=== PATIENT | male | born 1955 | race Caucasian/White ===

== ENCOUNTER 2018-09-12 15:37 | Emergency (ER) | payer MEDICAID ==
[2018-09-12 16:04] VITALS: BP 131/79
[2018-09-12] MEDS ORDERED: Sodium Chloride 0.9% 10 ML Syringe FLUSH PRN (16:11)
[2018-09-12] MEDS ORDERED: Sodium Chloride 0.9% 1,000 ML IV ONE (16:12)
[2018-09-12] MEDS ORDERED: Morphine 4 MG/ML Syringe IVPUSH ONE ×2 (16:12→16:45)
[2018-09-12] MEDS ORDERED: Ondansetron 4 MG/2 ML SDV IVPUSH ONE (16:12)
[2018-09-12] MEDS ORDERED: Ketorolac 15 MG/ML SDV IVPUSH ONE (16:45)
[2018-09-12 16:54] LABS: CHLORIDE,CL 101 mmol/L (98-107); SODIUM,NA 138 mmol/L (136-145)
[2018-09-12 16:55] LABS: ANION GAP 17.9 mmol/L (10-20)
[2018-09-12] MEDS ORDERED: Iopamidol 612 MG/ML 100 ML Bottle IVPUSH ONE (17:38)
--- NOTE | 2018-09-12 18:34 | CT ---
[id number] CT/CT Abdomen Pelvis W IV EXAM: CT Abdomen Pelvis W IV CLINICAL DATA: ABDOMINAL PAIN. COMPARISON STUDY: None. FINDINGS: Mild amount subsegmental atelectasis in both lower lobes. Geographic area of contrast enhancement in the subcapsular region of the superior right hepatic lobe (series 2 image 14). Punctate calcification in the inferior hepatic lobe, nonspecific in etiology. Liver is otherwise unremarkable. Cholelithiasis. No evidence of acute cholecystitis. Subcentimeter hypodensity in the spleen, nonspecific. Pancreas, adrenal glands, and kidneys are unremarkable. Colonic diverticulosis. Negative for acute diverticulitis. Appendix is normal. No small bowel obstruction or inflammation. Small sliding-type hiatus hernia. No lymphadenopathy in the abdomen or pelvis. Stent in the right external iliac vein. Aorta atherosclerosis without aneurysm. Bilateral L5 pars interarticularis defects resulting in anterolisthesis of approximately 10 mm. Advanced L5-S1 degenerative disc disease. Moderate changes of spondylosis elsewhere in lumbar spine. 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 IMPRESSION: No acute findings in the abdomen or pelvis. Nonspecific area of geographic contrast enhancement in the subcapsular region of the right hepatic lobe. Consider follow-up liver protocol CT examination to better evaluate this finding. Jesse Damon MD 09/12/18 1400 Thank you for allowing us to participate in the care of your patient.
[2018-09-12] MEDS ORDERED: Take Home: Acetaminophen/HYDROcodone 325-10 MG, 5 Tab Pack PO ONE (18:44)
[2018-09-12] MEDS ORDERED: Take Home: metroNIDAZOLE 500 MG Tab, 4 Tab Pack PO ONE (18:44)
[2018-09-12] MEDS ORDERED: Take Home: Ciprofloxacin 500 MG Tab, 2 Tab Pack PO ONE (18:44)
--- NOTE | 2018-09-12 21:23 | EDM.PDOC ---
ED HPI GENERAL MEDICAL PROBLEM - General Chief Complaint: Flank Pain Stated Complaint: PAIN LEFT SIDE Time Seen by Provider: 09/12/18 15:45 Source of Information: Reports: Patient History Limitations: Reports: No Limitations - History of Present Illness INITIAL COMMENTS - FREE TEXT/NARRATIVE: Pt. presents to ER with complaints of R sided abdominal pain. States that the discomfort started abruptly this afternoon. States that it is sharp in nature and feels as though it radiates into his groin. Denies any fever or chills. No nausea, vomiting, or diarrhea. No chest pain or shortness of breath. Pt. states that he has had kidney stones in the past. Pt. is on Xaralto but has not been in the medication for 2 days. He is anticoagulated due to PE. States that he has been attempting to coordinate with the pharmacy and clinic to get this filled. He states that the discomfort does not radiate into his chest. No shortness of breath. No hemoptysis. Onset: Today Onset Date: 09/12/18 Location: Reports: Abdomen Quality: Reports: Sharp, Stabbing Severity: Severe Left Flank Pain Score (Numeric/FACES): 5 - Related Data Allergies Allergy/AdvReac Type Severity Reaction Status Date / Time No Known Allergies Allergy Verified 09/12/18 16:06 Home Meds: Home Meds Rivaroxaban [Xarelto] 20 mg PO DAILY 09/12/18 [History] atorvaSTATin [Lipitor] 20 mg PO BEDTIME 09/12/18 [History] Past Medical History Cardiovascular History: Reports: High Cholesterol Respiratory History: Reports: PE Social & Family History - Tobacco Use Smoking Status *Q: Current Every Day Smoker Years of Tobacco use: 40 Packs/Tins Daily: 0.5 ED ROS GENERAL - Review of Systems Review Of Systems: See Below Constitutional: Reports: No Symptoms HEENT: Reports: No Symptoms Respiratory: Reports: No Symptoms Cardiovascular: Reports: No Symptoms Endocrine: Reports: No Symptoms GI/Abdominal: Reports: Abdominal Pain. Denies: Constipation, Diarrhea, Hematochezia, Melena : Reports: No Symptoms Musculoskeletal: Reports: No Symptoms Skin: Reports: No Symptoms Neurological: Reports: No Symptoms Psychiatric: Reports: No Symptoms Hematologic/Lymphatic: Reports: No Symptoms Immunologic: Reports: No Symptoms ED EXAM, GENERAL - Physical Exam Exam: See Below Exam Limited By: No Limitations General Appearance: Alert, WD/WN, No Apparent Distress Head: Atraumatic, Normocephalic Neck: Normal Inspection, Supple, Non-Tender, Full Range of Motion Respiratory/Chest: No Respiratory Distress, Lungs Clear, Normal Breath Sounds, No Accessory Muscle Use, Chest Non-Tender Cardiovascular: Normal Peripheral Pulses, Regular Rate, Rhythm, No Edema, No Gallop, No JVD, No Murmur, No Rub GI/Abdominal: Normal Bowel Sounds, Soft, No Organomegaly, No Distention, No Mass , Tender (Male) Exam: Deferred Rectal (Males) Exam: Deferred Back Exam: Normal Inspection, Full Range of Motion, NT Extremities: Normal Inspection, Normal Range of Motion, Non-Tender, Normal Capillary Refill, No Pedal Edema Neurological: Alert, Oriented, CN II-XII Intact, Normal Cognition, Normal Gait, Normal Reflexes, No Motor/Sensory Deficits Psychiatric: Normal Affect, Normal Mood Skin Exam: Warm, Dry, Intact, Normal Color, No Rash Course - Vital Signs Last Recorded V/S: Last Vital Signs Temp 37.3 C 09/12/18 15:45 Pulse 65 09/12/18 15:45 Resp 18 09/12/18 15:45 BP 131/79 09/12/18 15:45 Pulse Ox 97 09/12/18 15:45 - Orders/Labs/Meds Orders: Active Orders 24 hr Category Date Time Status Peripheral IV Insertion Adult [OM.PC] Routine Oth 09/12/18 16:11 Ordered Labs: Laboratory Tests 09/12/18 09/12/18 09/12/18 Range/Units 16:28 16:29 16:29 WBC 14.2 H (4.0-10.0) x10^3/uL RBC 5.00 (4.5-6.0) x10^6/uL Hgb 15.6 (14.0-18.0) g/dL Hct 44.7 (40.0-52.0) % MCV 89.4 (78.0-93.0) fL MCH 31.2 (26.0-32.0) pg MCHC 34.9 (32.0-36.0) g/dL RDW Coeff of [place] 14.0 (10.0-15.0) % Plt Count 142 (130-400) x10^3/uL Neut % (Auto) 84.7 H (50.0-80.0) % Lymph % (Auto) 10.3 L (25.0-50.0) % [place] % (Auto) 4.7 (2.0-11.0) % Eos % (Auto) 0.2 (0.0-4.0) % Baso % (Auto) 0.1 L (0.2-1.2) % PT 11.0 (9.6-11.4) SEC INR 1.1 L (2.0-3.5) Sodium (136-145) mmol/L Potassium (3.5-5.1) mmol/L Chloride (98-107) mmol/L Carbon Dioxide (21-32) mmol/L Anion Gap (10-20) mmol/L BUN (7-18) mg/dL Creatinine (0.70-1.30) mg/dL Est Cr Clr Drug Dosing Estimated GFR (MDRD) Glucose (74-106) mg/dL Calcium (8.5-10.1) mg/dL Corrected Calcium (8.5-10.1) mg/dL Phosphorus (2.6-4.7) mg/dL Magnesium (1.8-2.4) mg/dL Total Bilirubin (0.2-1.0) mg/dL AST (15-37) U/L ALT (16-63) U/L Alkaline Phosphatase (46-116) U/L C-Reactive Protein (<=0.9) mg/dL Total Protein (6.4-8.2) g/dL Albumin (3.4-5.0) g/dL Globulin Albumin/Globulin Ratio Urine Color Dark yellow H (YELLOW) Urine Appearance Cloudy H (CLEAR) Urine pH 5.0 (5.0-8.0) Ur Specific [place] 1.020 Urine Protein Negative (NEGATIVE) mg/dL Urine Glucose (UA) Negative (NEGATIVE) mg/dL Urine Ketones Negative (NEGATIVE) mg/dL Urine Occult Blood Negative (NEGATIVE) Urine Nitrite Negative (NEGATIVE) Urine Bilirubin Negative (NEGATIVE) Urine Urobilinogen 0.2 (0.2) EU/dL Ur Leukocyte Esterase Negative (NEGATIVE) Urine RBC 0-5 (NOT SEEN) /HPF Urine WBC 0-5 (NOT SEEN) /HPF Ur Squamous Epith Cells Not seen (NEGATIVE) /HPF Urine Bacteria Rare (NEGATIVE) /HPF Urine Mucus Many H (NEGATIVE) /LPF 09/12/18 Range/Units 16:29 WBC (4.0-10.0) x10^3/uL RBC (4.5-6.0) x10^6/uL Hgb (14.0-18.0) g/dL Hct (40.0-52.0) % MCV (78.0-93.0) fL MCH (26.0-32.0) pg MCHC (32.0-36.0) g/dL RDW Coeff of [place] (10.0-15.0) % Plt Count (130-400) x10^3/uL Neut % (Auto) (50.0-80.0) % Lymph % (Auto) (25.0-50.0) % [place] % (Auto) (2.0-11.0) % Eos % (Auto) (0.0-4.0) % Baso % (Auto) (0.2-1.2) % PT (9.6-11.4) SEC INR (2.0-3.5) Sodium 138 (136-145) mmol/L Potassium 3.9 (3.5-5.1) mmol/L Chloride 101 (98-107) mmol/L Carbon Dioxide 23 (21-32) mmol/L Anion Gap 17.9 (10-20) mmol/L BUN 10 (7-18) mg/dL Creatinine 1.0 (0.70-1.30) mg/dL Est Cr Clr Drug Dosing TNP Estimated GFR (MDRD) > 60 Glucose 110 H (74-106) mg/dL Calcium 9.3 (8.5-10.1) mg/dL Corrected Calcium 9.46 (8.5-10.1) mg/dL Phosphorus 3.2 (2.6-4.7) mg/dL Magnesium 1.8 (1.8-2.4) mg/dL Total Bilirubin 0.5 (0.2-1.0) mg/dL AST 19 (15-37) U/L ALT 19 (16-63) U/L Alkaline Phosphatase 83 (46-116) U/L C-Reactive Protein < 0.2 (<=0.9) mg/dL Total Protein 8.6 H (6.4-8.2) g/dL Albumin 3.8 (3.4-5.0) g/dL Globulin 4.8 Albumin/Globulin Ratio 0.79 Urine Color (YELLOW) Urine Appearance (CLEAR) Urine pH (5.0-8.0) Ur Specific [place] Urine Protein (NEGATIVE) mg/dL Urine Glucose (UA) (NEGATIVE) mg/dL Urine Ketones (NEGATIVE) mg/dL Urine Occult Blood (NEGATIVE) Urine Nitrite (NEGATIVE) Urine Bilirubin (NEGATIVE) Urine Urobilinogen (0.2) EU/dL Ur Leukocyte Esterase (NEGATIVE) Urine RBC (NOT SEEN) /HPF Urine WBC (NOT SEEN) /HPF Ur Squamous Epith Cells (NEGATIVE) /HPF Urine Bacteria (NEGATIVE) /HPF Urine Mucus (NEGATIVE) /LPF Meds: Medications Discontinued Medications Generic Name Dose Route Start Last Admin Trade Name Freq PRN Reason Stop Dose Admin Hydrocodone Bitart/Acetaminophen 1 packet 09/12/18 18:44 09/12/18 18:54 Take Home: Acetaminophen/Hydrocodone 325-10mg PO 09/12/18 18:45 1 packet ONETIME ONE Administration Ciprofloxacin 1 packet 09/12/18 18:44 09/12/18 18:54 Take Home: Ciprofloxacin 500 Mg, 2 Tab Pack PO 09/12/18 18:45 1 packet ONETIME ONE Administration Sodium Chloride 1,000 mls @ 1,000 mls/hr 09/12/18 16:12 09/12/18 16:20 Normal Saline IV 09/12/18 17:11 1,000 mls/hr .BOLUS ONE Administration Iopamidol 100 ml 09/12/18 17:38 09/12/18 17:47 Isovue-300 (61%) IVPUSH 09/12/18 17:39 100 ml ONETIME ONE Administration Ketorolac Tromethamine 15 mg 09/12/18 16:45 09/12/18 16:53 Toradol IVPUSH 09/12/18 16:46 15 mg ONETIME ONE Administration Metronidazole 1 packet 09/12/18 18:44 09/12/18 18:54 Take Home: Metronidazole 500 Mg, 4 Tab Pack PO 09/12/18 18:45 1 packet ONETIME ONE Administration Morphine Sulfate 4 mg 09/12/18 16:12 09/12/18 16:27 Morphine IVPUSH 09/12/18 16:13 4 mg ONETIME ONE Administration Morphine Sulfate 4 mg 09/12/18 16:45 09/12/18 16:55 Morphine IVPUSH 09/12/18 16:46 4 mg ONETIME ONE Administration Ondansetron HCl 4 mg 09/12/18 16:12 09/12/18 16:25 Zofran IVPUSH 09/12/18 16:13 4 mg ONETIME ONE Administration Sodium Chloride 10 ml 09/12/18 16:11 Saline Flush FLUSH ASDIRECTED PRN Keep Vein Open - Radiology Interpretation Free Text/Narrative:: CT abd/pelvis was obtained. No evidence of obvious infectious process. Renal collecting system is WNL. There was evidence of diverticulosis without evidence of diverticulitis. No obvious kidney stones or hydronephrosis. Departure - Departure Time of Disposition: 18:30 Disposition: Home, Self-Care 01 Condition: Good Clinical Impression: Diverticulitis - Discharge Information Instructions: Acetaminophen; Hydrocodone tablets or capsules, Diverticulitis, [id number], Ciprofloxacin tablets, Metronidazole tablets or capsules, Probiotics Referrals: PCP,Unknown [Primary Care Provider] - Forms: ED Department Discharge Additional Instructions: Cipro 500mg twice daily for 10 days Flagyl 500mg three times daily for 10 days [place] 10/325mg 1 every 4-6 hours as needed for pain Drink plenty of fluids Return to ER if increased discomfort, fever, chills, or lightheadedness - Problem List Review Problem List Initiated/Reviewed/Updated: Yes - My Orders Last 24 Hours: My Active Orders 09/12/18 16:11 Peripheral IV Insertion Adult [OM.PC] Routine - Assessment/Plan Last 24 Hours: My Active Orders 09/12/18 16:11 Peripheral IV Insertion Adult [OM.PC] Routine Plan: Unclear what the cause of the pain was from. He may have passed a small stone, or he may have diverticulitis that is not evident on CT. Cipro 500mg twice daily for 10 days Flagyl 500mg three times daily for 10 days [place] 10/325mg 1 every 4-6 hours as needed for pain Drink plenty of fluids Return to ER if increased discomfort, fever, chills, or lightheadedness
== END 2018-09-12 19:01 | disposition home or self-care (01) ==
LOC: VM.ED 15:37
DX: K57.92 Diverticulitis of intestine, part unspecified, without perforation or abscess without bleeding (principal); F17.210 Nicotine dependence, cigarettes, uncomplicated; Z79.899 Other long term (current) drug therapy
CPT/HCPCS: 36415; 74177; 80053; 81001; 83735; 84100; 85025; 85610; 86140; 96361; 96374; 96375; 99284; A9270; J1885; J2270; J2405; J7030; Q9967

== ENCOUNTER 2021-10-11 07:53 | Emergency (ER) | payer SELFPAY ==
[2021-10-11] MEDS ORDERED: Sodium Chloride 0.9% 10 ML Syringe FLUSH PRN (08:25)
[2021-10-11] MEDS ORDERED: HYDROmorphone 1 MG/ML Syringe IVPUSH ONE (08:38)
[2021-10-11] MEDS ORDERED: Sodium Chloride 0.9% 1,000 ML IV ONE (08:45)
[2021-10-11 09:02] LABS: ANION GAP 13.9 mmol/L (5-15); CHLORIDE,CL 103 mmol/L (98-107); SODIUM,NA 138 mmol/L (136-145)
[2021-10-11 09:12] LABS: PTT,PARTIAL THROMBOPLSTIN TIME 25.6 SEC (20.5-30.9)
[2021-10-11] MEDS ORDERED: Iopamidol 755 Mg/ML 100 ML Bottle IVPUSH ONE (10:26)
[2021-10-11 11:11] VITALS: BP 132/74; PULSE 58
[2021-10-11] MEDS ORDERED: Heparin Sodium 5,000 Units/ML Vial IVPUSH ONE ×2 (11:58→12:35)
[2021-10-11] MEDS ORDERED: Heparin Sodium/0.45% NaCl 25,000 UNITS/500 ML BAG IV SCH (12:00)
== END 2021-10-11 13:45 | disposition short-term general hospital (02) ==
LOC: VM.ED 07:53
DX: I77.1 Stricture of artery (principal); E78.00 Pure hypercholesterolemia, unspecified
CPT/HCPCS: 73706-LT; 80053; 83605; 85025; 85379; 85610; 85730; 86140; 96365; 96375; 99285-25; J1170; J1644; J7030; Q9967